=== PATIENT | female | born 2000 | race Caucasian/White ===

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

== ENCOUNTER 2021-05-28 14:09 | Outpatient (REF) | payer OTHER, SELFPAY ==
--- NOTE | ~2021-05-28 | US_ITS ---
EXAMINATION: US PELVIS CLINICAL INFORMATION: Irregular menses. COMPARISON: None TECHNIQUE: Ultrasound of the pelvis is performed using both transabdominal and transvaginal transducers along with Doppler. Transvaginal imaging is performed due to inadequate visualization transabdominally. Transvaginal ultrasound is limited as patient could not tolerate. FINDINGS: UTERUS: The uterus is anteverted and measures 7.4 cm in length, 2.5 cm in AP and 3.7 cm in transverse dimension. No focal lesion seen. The double wall endometrial thickness is 0.48 mm. The uterus is smooth in contour and has normal myometrial echogenicity. No visible fibroid. ADNEXA: Both ovaries are visualized. There is normal color flow to the adnexa. There is no ovarian torsion. There is no pelvic ascites or fluid collection. Right ovary measures 3.9 x 1.5 x 2.4 cm. Volume is 7.2 mL. There is a simple cyst measuring 1.8 x 1.0 x 1.8 cm. Left ovary measures 5.1 x 1.8 x 2.0 cm. Volume 9.2 mL. There is no free fluid in the cul-de-sac. US/US pelvic and transvaginal IMPRESSION: Unremarkable uterus. Simple cyst right ovary. Unremarkable left ovary. No free fluid in the cul-de-sac.
== END 2021-05-28 14:10 | disposition home or self-care (01) ==
LOC: HO.HMGCX 14:09
PROVIDERS: Visit Provider Nurse Practitioner Family
DX: N92.6 Irregular menstruation, unspecified (principal); R10.814 Left lower quadrant abdominal tenderness
CPT/HCPCS: 76830; 76856